=== PATIENT | male | born 1955 | race Caucasian/White ===

== ENCOUNTER 2021-09-08 08:25 | Observation (INO) ==
[2021-09-08] MEDS ORDERED: 0.9 % Sodium Chloride 1,000 ML IVC ONE (08:40)
[2021-09-08 09:08] LABS: ABG Base Excess 6 mEq/L (-2 to 3); ABG HCO3 36 mEq/L (21-27); ABG Oxygen Saturation 98 % (95-98); ABG PCO2 86 mmHg (35-45); ABG PH 7.23 pH Units (7.32-7.45); ABG PO2 120 mmHg (85-104); ABG TCO2 39 mEq/L (20-26)
[2021-09-08 09:10] LABS: Basophils % 0.3 %; Eosinophils # 0.3 K/mcL (0.0-0.6); Eosinophils % 2.7 %; Hematocrit 24.9 % (37.5-50.1); Hemoglobin 7.3 g/dL (12.9-16.9); Immature Granulocytes % 0.7 % (0-4); Lymphocytes # 1.2 K/mcL (0.6-4.6); Lymphocytes % 12.2 %; Mean Corpuscular HGB Conc 29.3 g/dL (31.6-35.5); Mean Corpuscular Hemoglobin 25.6 pg (28.0-33.3); Mean Corpuscular Volume 87.4 fL (83.0-100.0); Monocytes # 0.7 K/mcL (0.0-1.3); Neutrophils # 7.4 K/mcL (1.6-8.9); Nucleated Red Blood Cells 0.2 /100 WBC (0); Platelet Count 177 K/mcL (140-400); Red Blood Count 2.85 M/mcL (4.19-5.50); Red Cell Distribution Width 18.2 % (11.5-14.5); Segmented Neutrophils % 77.1 %; White Blood Count 9.6 K/mcL (4.3-11.1)
[2021-09-08 09:29] LABS: Alanine Aminotransferase 8 Units/L (7-52); Albumin 2.9 g/dL (3.5-5.7); Albumin/Globulin Ratio 0.9 (1.1-2.2); Alkaline Phosphatase 88 Units/L (34-104); Aspartate Amino Transferase 14 Units/L (13-39); BUN/Creatinine Ratio 33 (6-26); Bilirubin,Direct 0.1 mg/dL (0.0-0.2); Bilirubin,Indirect 0.2 mg/dL (0.0-1.0); Bilirubin,Total 0.3 mg/dL (0.3-1.0); Blood Urea Nitrogen 47 mg/dL (8-23); Calcium 8.7 mg/dL (8.6-10.3); Carbon Dioxide 35 mEq/L (23-29); Chloride 99 mEq/L (98-107); Globulin 3.2 g/dL (2.4-3.5); Glucose 209 mg/dL (70-105); Osmolality,Calculated 302 (280-300); Sodium 137 mEq/L (136-145); Total Protein 6.1 g/dL (6.4-8.9); eGFR For African Americans > 60 (> 60); eGFR For Non-African Americans 50 (> 60)
[2021-09-08 09:32] LABS: Troponin I < 0.03 ng/mL (< 0.04)
[2021-09-08] MEDS ORDERED: Acetaminophen 325 MG TABLET PO PRN (10:15)
[2021-09-08] MEDS ORDERED: Ondansetron ODT 4 MG TAB.RAPDIS SL PRN (10:15)
[2021-09-08] MEDS ORDERED: Naloxone 0.4 MG/ML INJ IVP PRN (10:15)
[2021-09-08] MEDS ORDERED: 0.9 % Sodium Chloride 1,000 ML IVC SCH (10:15)
[2021-09-08] MEDS ORDERED: 0.9 % Sodium Chloride 250 ML ONE (10:26)
[2021-09-08] MEDS ORDERED: *HR* Dextrose 50 % in Water (Syg) 50 ML SYRINGE IVP PRN (10:29)
[2021-09-08] MEDS ORDERED: D5% in Water 1,000 ML IVC PRN (10:29)
[2021-09-08] MEDS ORDERED: Dextrose Gel 15 GM/37.5 ML TUBE PO PRN ×2 (10:29)
[2021-09-08] MEDS ORDERED: Ipratropium/Albuterol Neb 3 ML IH PRN (10:32)
[2021-09-08 10:36] LABS: INR 1.6; Prothrombin Time 18.3 Seconds (9.4-12.1)
[2021-09-08 10:38] LABS: Activated Partial Thrombo Time 36.9 Seconds (26.0-36.0)
[2021-09-08] MEDS: Insulin LISPRO 300 UNITS/3 ML VIAL SUBQ SCH ×2 (14:40→17:23)
[2021-09-08] MEDS: MethylPREDNISolone 40 MG/ML VIAL IVP SCH (18:35)
[2021-09-08] MEDS: Budesonide/Formoterol 160/4.5 1 PUFF INH IH SCH (20:56)
[2021-09-08] MEDS ORDERED: Insulin LISPRO 300 UNITS/3 ML VIAL SUBQ SCH (21:00)
[2021-09-08] MEDS: Insulin DETEMIR 100 UNIT/ML X5UNITS SUBQ SCH (22:04)
[2021-09-08] MEDS: Apixaban 5 MG TABLET PO SCH (22:04)
[2021-09-08] MEDS: QUEtiapine Fumarate 100 MG TABLET PO SCH (22:04)
[2021-09-08] MEDS: *HR* HYDROcodone/Acet 5/325 mg TABLET PO PRN (22:08)
[2021-09-09] MEDS: MethylPREDNISolone 40 MG/ML VIAL IVP SCH (05:18)
[2021-09-09 06:15] LABS: Hematocrit 26.7 % (37.5-50.1); Mean Corpuscular Hemoglobin 25.7 pg (28.0-33.3); Mean Corpuscular Volume 85.9 fL (83.0-100.0); Mean Platelet Volume 12.2 fL (9.4-12.4); Platelet Count 176 K/mcL (140-400); Red Blood Count 3.11 M/mcL (4.19-5.50); Red Cell Distribution Width 17.4 % (11.5-14.5); White Blood Count 7.4 K/mcL (4.3-11.1)
[2021-09-09 06:36] LABS: BUN/Creatinine Ratio 42 (6-26); Blood Urea Nitrogen 44 mg/dL (8-23); Calcium 8.8 mg/dL (8.6-10.3); Carbon Dioxide 30 mEq/L (23-29); Chloride 101 mEq/L (98-107); Glucose 225 mg/dL (70-105); Osmolality,Calculated 304 (280-300); Sodium 138 mEq/L (136-145); eGFR For African Americans > 60 (> 60); eGFR For Non-African Americans > 60 (> 60)
[2021-09-09] MEDS: Aspirin Enteric Coated 81 MG Tablet PO SCH (08:07)
[2021-09-09] MEDS: Cholecalciferol (D-3) 1,000 UNIT (25MCG) TABLET PO SCH (08:07)
[2021-09-09] MEDS: Apixaban 5 MG TABLET PO SCH ×2 (08:07→20:42)
[2021-09-09] MEDS: Finasteride 5 MG TABLET PO SCH (08:07)
[2021-09-09] MEDS: Insulin LISPRO 300 UNITS/3 ML VIAL SUBQ SCH ×6 (08:08→21:42)
[2021-09-09 08:53] LABS: Basophils % 0.1 %; Eosinophils % 0.1 %; Hematocrit 28.7 % (37.5-50.1); Hemoglobin 8.6 g/dL (12.9-16.9); Immature Granulocytes % 0.1 % (0-4); Lymphocytes # 0.6 K/mcL (0.6-4.6); Lymphocytes % 9.1 %; Mean Corpuscular Hemoglobin 25.7 pg (28.0-33.3); Mean Corpuscular Volume 85.7 fL (83.0-100.0); Mean Platelet Volume 12.7 fL (9.4-12.4); Monocytes % 0.3 %; Platelet Count 189 K/mcL (140-400); Red Blood Count 3.35 M/mcL (4.19-5.50); Red Cell Distribution Width 17.2 % (11.5-14.5); Segmented Neutrophils % 90.3 %; White Blood Count 6.7 K/mcL (4.3-11.1)
[2021-09-09 09:09] LABS: BUN/Creatinine Ratio 42 (6-26); Blood Urea Nitrogen 45 mg/dL (8-23); Calcium 9.1 mg/dL (8.6-10.3); Carbon Dioxide 31 mEq/L (23-29); Chloride 102 mEq/L (98-107); Glucose 231 mg/dL (70-105); Magnesium 2.1 mg/dL (1.6-2.6); Osmolality,Calculated 307 (280-300); Potassium 6.1 mEq/L (3.5-5.1); Sodium 139 mEq/L (136-145); eGFR For African Americans > 60 (> 60); eGFR For Non-African Americans > 60 (> 60)
[2021-09-09] MEDS: Budesonide/Formoterol 160/4.5 1 PUFF INH IH SCH ×2 (09:37→21:10)
[2021-09-09] MEDS ORDERED: Dextrose Gel 15 GM/37.5 ML TUBE PO PRN ×2 (11:05)
[2021-09-09] MEDS ORDERED: *HR* Dextrose 50 % in Water (Syg) 50 ML SYRINGE IVP PRN (11:05)
[2021-09-09] MEDS ORDERED: D5% in Water 1,000 ML IVC PRN (11:05)
[2021-09-09] MEDS ORDERED: hydrALAZINE 10 MG TABLET PO PRN (11:14)
[2021-09-09] MEDS ORDERED: Insulin Human Regular 10 UNIT in 0.9 % Sodium Chloride 10 ML IV ONE (16:08)
[2021-09-09] MEDS ORDERED: *HR* Dextrose 50 % in Water (Syg) 50 ML SYRINGE IVP ONE (16:09)
[2021-09-09 16:48] LABS: % Iron Saturation 7 % (20-55); Iron 22 mcg/dL (65-175); Transferrin 228 mg/dL (203-362)
[2021-09-09 17:13] LABS: Folate 14.1 ng/mL (3.0-16.0)
[2021-09-09 19:26] LABS: Estimated Average Glucose 174 mg/dl; Hemoglobin A1C 7.7 %
[2021-09-09] MEDS: QUEtiapine Fumarate 100 MG TABLET PO SCH (20:41)
[2021-09-09] MEDS: *HR* HYDROcodone/Acet 5/325 mg TABLET PO PRN (20:44)
[2021-09-09] MEDS: Insulin DETEMIR 100 UNIT/ML X5UNITS SUBQ SCH (21:49)
[2021-09-10 06:55] LABS: Basophils % 0.5 %; Eosinophils # 0.1 K/mcL (0.0-0.6); Eosinophils % 1.4 %; Hematocrit 25.5 % (37.5-50.1); Hemoglobin 7.4 g/dL (12.9-16.9); Immature Granulocytes % 0.9 % (0-4); Lymphocytes # 1.8 K/mcL (0.6-4.6); Lymphocytes % 21.5 %; Mean Corpuscular Hemoglobin 25.7 pg (28.0-33.3); Mean Corpuscular Volume 88.5 fL (83.0-100.0); Mean Platelet Volume 12.2 fL (9.4-12.4); Monocytes # 0.5 K/mcL (0.0-1.3); Monocytes % 5.7 %; Neutrophils # 5.9 K/mcL (1.6-8.9); Nucleated Red Blood Cells 0.2 /100 WBC (0); Platelet Count 198 K/mcL (140-400); Red Blood Count 2.88 M/mcL (4.19-5.50); Red Cell Distribution Width 17.7 % (11.5-14.5); White Blood Count 8.5 K/mcL (4.3-11.1)
[2021-09-10 07:04] VITALS: BP 109/69; PULSE 84; TEMP 97.5
[2021-09-10 07:31] LABS: BUN/Creatinine Ratio 43 (6-26); Blood Urea Nitrogen 44 mg/dL (8-23); Calcium 8.8 mg/dL (8.6-10.3); Carbon Dioxide 36 mEq/L (23-29); Chloride 100 mEq/L (98-107); Glucose 242 mg/dL (70-105); Magnesium 1.9 mg/dL (1.6-2.6); Osmolality,Calculated 307 (280-300); Potassium 5.3 mEq/L (3.5-5.1); Sodium 139 mEq/L (136-145); eGFR For African Americans > 60 (> 60); eGFR For Non-African Americans > 60 (> 60)
[2021-09-10] MEDS: Cholecalciferol (D-3) 1,000 UNIT (25MCG) TABLET PO SCH (07:41)
[2021-09-10] MEDS: Aspirin Enteric Coated 81 MG Tablet PO SCH (07:42)
[2021-09-10] MEDS: Apixaban 5 MG TABLET PO SCH (07:42)
[2021-09-10] MEDS: Finasteride 5 MG TABLET PO SCH (07:43)
[2021-09-10] MEDS: Insulin LISPRO 300 UNITS/3 ML VIAL SUBQ SCH ×2 (07:43→11:48)
[2021-09-10] MEDS ORDERED: predniSONE 20 MG TABLET PO SCH (09:00)
[2021-09-10] MEDS: Budesonide/Formoterol 160/4.5 1 PUFF INH IH SCH (09:16)
[2021-09-10 09:21] VITALS: RESP 20; O2SAT 94
[2021-09-10] MEDS: *HR* HYDROcodone/Acet 5/325 mg TABLET PO PRN (10:11)
[2021-09-10] MEDS ORDERED: FLU Vac QV 21-22 (6Month+)/PF 0.5 ML SYRINGE IM ONE (10:56)
== END 2021-09-10 13:00 ==
LOC: INPPIK 08:25 → EMEROOPIK 08:25 → INPPIK 13:55
PROVIDERS: ADMIT Internal Medicine; ATTEND Internal Medicine